=== PATIENT | female | born 1960 | race Caucasian/White ===

== ENCOUNTER 2023-09-06 11:45 | Emergency (ER) | payer BC ==
[2023-09-06 12:11] VITALS: BP 157/81; PULSE 86; RESP 18; TEMP 98.1; BMI 18.8
== END 2023-09-06 12:20 | disposition home or self-care (01) ==
LOC: FER 11:45
DX: S80.211A Abrasion, right knee, initial encounter (principal); S60.512A Abrasion of left hand, initial encounter; M25.532 Pain in left wrist; W01.0XXA Fall on same level from slipping, tripping and stumbling without subsequent striking against object, initial encounter; Y93.01 Activity, walking, marching and hiking
CPT/HCPCS: 73110-TC-LT-FY; 73130-TC-LT-FY; 99283-25